=== PATIENT | female | born 1985 | race Caucasian/White ===

== ENCOUNTER → 2016-09-29 | Outpatient (CLI) | payer OTHER ==
[~2016-09-29] MED LIST: OPTIRAY 320 IV PRN
--- NOTE | 2016-09-29 13:57 | DIAGNOSTIC IMAGING REPORT ---
CT ORBITS/SELLA/TEMP WITH CT DOSE: 101.18 mGy.cm CLINICAL HISTORY: Right orbital pain TECHNIQUE: The patient was scanned in a dynamic helical fashion during intravenous administration of 94 cc of Optiray 320. COMPARISON STUDY: MRI the brain dated 06/24/2016 FINDINGS: The visualized portions intracranial contents appear normal. There is no evidence of acute sinusitis. There is mild mucosal thickening involving the base of the left maxillary sinus. There is localized fusiform thickening of the right medial rectus muscle. The remainder of the extraocular muscles appear unremarkable. There is no evidence of pathologic adenopathy. This finding was not present on the prior MRI study performed 06/24/2016. IMPRESSION: 1. Fusiform thickening of the right medial rectus muscle. Diagnostic considerations include orbital myositis, thyroid related eye disease, other orbital inflammatory processes (idiopathic inflammation, vasculitis, sarcoid), and significantly less likely neoplasm (given the normal appearance on the MRI study dated 06/24/2016). Electronically signed by: Daniel Mccabe M.D. 09/29/2016 1:55 PM Dictated Date/Time: 09/29/2016 1:41 PM
== END | disposition home or self-care (01) ==
LOC: C.CTS 13:10
PROVIDERS: ATTEND Internal Medicine
DX: L03.213 Periorbital cellulitis (principal); H57.9 Unspecified disorder of eye and adnexa

== ENCOUNTER → 2016-10-15 | Outpatient (CLI) | payer OTHER ==
[~2016-10-15] MED LIST changes: +GADAVIST IV PRN; -OPTIRAY 320 IV PRN
--- NOTE | 2016-10-15 11:20 | DIAGNOSTIC IMAGING REPORT ---
MRI OF THE BRAIN COMBO CLINICAL HISTORY: Pseudotumor cerebri. Right eye pain. COMPARISON STUDY: MRI of the brain pituitary protocol dated 06/24/2016. CT scan of the orbits dated 09/29/2016. TECHNIQUE: MRI of the brain was performed utilizing various T1 and T2-weighted sequences in the axial, sagittal, and coronal planes. Contrast-enhanced sequences were acquired following the administration of 10 cc of Gadavist. FINDINGS: Brain parenchyma: The brain parenchyma is normal in appearance. There is no hemorrhage or mass effect. There is no restricted diffusion to suggest acute ischemia. No enhancing mass lesion is identified on the postcontrast images. Lousie-white matter differentiation is preserved. No extra-axial fluid collection is seen. The cerebellar tonsils are normal in configuration. Ventricles, sulci, and cisterns: Normal in configuration. Pituitary and sella: Unremarkable. Intracranial vasculature: Normal flow voids are maintained at the skull base. Orbits: The bony orbits are grossly intact. Asymmetric thickening is again seen within the right medial rectus muscle. Orbital contents are otherwise normal in appearance. There is no prominence of the subarachnoid space around the optic nerves. Sinuses and mastoids: There is a retention cyst in the left maxillary antrum. The paranasal sinuses and mastoid air cells are otherwise clear. Calvarium: Unremarkable. Cervical cord: Partially visualized cervical spinal cord is normal in morphology and signal intensity. IMPRESSION: 1. No acute intracranial abnormality. 2. Again seen is asymmetric thickening of the right medial rectus muscle. This is similar to the 09/29/[address] scan and was better assessed on that examination. Electronically signed by: Isra Jo M.D. 10/15/2016 11:19 AM Dictated Date/Time: 10/15/2016 11:10 AM
== END | disposition home or self-care (01) ==
LOC: C.MRIBC 10:00
PROVIDERS: ATTEND Internal Medicine
DX: L03.213 Periorbital cellulitis (principal); G93.2 Benign intracranial hypertension

== ENCOUNTER → 2017-09-01 | Outpatient (CLI) | payer OTHER ==
--- NOTE | 2017-09-01 23:24 | DIAGNOSTIC IMAGING REPORT ---
BRAIN COMBO FOR PITUITARY, ORBIT COMBO HISTORY: 31 years-old Female D35.2 [id number] Headache attention to right orbit history of thickening involving the right medial rectus musculature COMPARISON: Brain MRI 10/15/2016 TECHNIQUE: Multiplanar multisequence MRI of the brain was obtained both with and without 11 mL Gadavist utilizing pituitary mass protocol. MRI of the orbits was also obtained. FINDINGS: BRAIN MRI: No restricted diffusion. The midline structures including the corpus callosum, optic chiasm, cerebellar tonsils and pineal gland are unremarkable on the sagittal T1 series. Major flow voids at the level of the skull base are patent. Mastoid air cells are clear. Mild mucosal thickening of the inferior left maxillary antrum dependently and ethmoid air cells. Right-sided phil bullosa. The scalp, calvarium and soft tissues are unremarkable. No acute intracranial hemorrhage, midline shift, abnormal extra-axial collections, hydrocephalus or intracranial mass identified. There is a punctate focus of mildly increased T2/FLAIR signal within the subcortical white matter of the right frontal lobe, image 12 of series 7 which is likely of no clinical significance. The dynamic postcontrast images through the pituitary gland demonstrate homogeneous enhancement without focal mass identified. The pituitary infundibulum appears normal. ORBITS MRI: Courses of the 7th and 8th cranial nerves appear normal. Cisternal portions of the trigeminal nerves are within normal limits. No cerebellar pontine angle mass identified. Imaged brain parenchyma appears normal. Mild mucosal thickening of the ethmoid air cells. Small right phil bullosa. Bilateral globes are within normal limits. Bilateral optic nerves are within normal limits. The extraocular musculature appears within normal limits. The right medial rectus muscle appears symmetric compared to the contralateral side. No significant extraocular muscular thickening, abnormal enhancement or surrounding inflammatory changes. No inflammatory changes of the intraconal or extraconal structures. Lacrimal glands are within normal limits. IMPRESSION: 1. Resolution of the previously described asymmetric thickening and inflammatory change of the right medial rectus muscle. No significant extraocular muscular thickening, abnormal enhancement or inflammatory changes identified on today's exam. 2. No acute intracranial abnormality or abnormal intracranial enhancement. 3. Normal appearance of the pituitary gland without focal mass identified. 4. Small right phil bullosa with minimal paranasal sinus disease. The above report was generated using voice recognition software. It may contain grammatical, syntax or spelling errors. Electronically signed by: Kody Noriega M.D. 09/01/2017 11:22 PM Dictated Date/Time: 09/01/2017 10:39 PM
== END | disposition home or self-care (01) ==
LOC: C.MRI 20:11
PROVIDERS: ATTEND Physician Assistant
DX: R51 Headache (principal); D35.2 Benign neoplasm of pituitary gland

== ENCOUNTER 2020-03-13 10:11 | Inpatient (IN) ==
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
[2020-03-13 11:36] LABS: Basophils # (auto) 0.04 K/uL (0-0.2); Basophils % (auto) 0.4 %; Eosinophils # (auto) 0.04 K/uL (0-0.5); Eosinophils % (auto) 0.4 %; Hematocrit (blood only) 40.5 % (37-47); Hemoglobin 13.8 g/dL (12.0-16.0); Immature Granulocytes # (auto) 0.03 K/uL (0.00-0.02); Immature Granulocytes % (auto) 0.3 %; Lymphocytes # (auto) 1.57 K/uL (1.2-3.4); Lymphocytes % (auto) 16.4 %; Mean Corpuscular Hemoglobin 29.9 pg (25-34); Mean Corpuscular Hgb Conc 34.1 g/dL (32-36); Mean Corpuscular Volume 87.7 fL (80-100); Mean Platelet Volume 9.9 fL (7.4-10.4); Monocytes % (auto) 7.3 %; Neutrophils # (auto) 7.17 K/uL (1.4-6.5); Neutrophils % (auto) 75.2 %; Platelet Count 281 K/uL (130-400); RDW Coefficient of Variation 12.6 % (11.5-14.5); RDW Standard Deviation 40.1 fL (36.4-46.3); Red Blood Count 4.62 M/uL (4.2-5.4); White Blood Count 9.55 K/uL (4.8-10.8)
[2020-03-13 11:52] LABS: Pregnancy Test, Urine Negative (Negative)
[2020-03-13 11:53] LABS: Appearance Urine Clear (Clear); Bilirubin Urine Negative (Negative); Blood Urine Negative (Negative); Color Urine Yellow; Glucose Urine UA Negative (Negative); Ketones Urine Negative (Negative); Leukocyte Esterase Urine Negative (Negative); Nitrite Urine Negative (Negative); Protein Urine Negative (Negative); Specific Gravity Urine 1.005 (1.000-1.030); Urobilinogen Urine Negative (Negative); pH Urine 6.5 (4.5-7.5)
[2020-03-13 12:27] LABS: Alanine Aminotransferase 58 U/L (12-78); Albumin Level 4.2 gm/dl (3.4-5.0); Aspartate Aminotransferase 22 U/L (15-37); BUN Creatinine Ratio 8.8 (10-20); Blood Urea Nitrogen 7 mg/dl (7-18); Calcium 9.3 mg/dl (8.5-10.1); Carbon Dioxide 24 mmol/L (21-32); Chloride 104 mmol/L (98-107); Est GFR (African American) 113.1; Est GFR (Non-African American) 97.6; Glucose 108 mg/dl (70-99); Potassium 3.9 mmol/L (3.5-5.1); Sodium 137 mmol/L (136-145)
[2020-03-13 12:32] LABS: Amphetamines+Metham, Urine Neg (Neg); Barbiturates, Urine Neg (Neg); Benzodiazepine, Urine Pos (Neg); Cocaine, Urine Neg (Neg); MDMA (Ecstacy), Urine Neg (Neg); Methadone, Urine Neg (Neg); Opiate, Urine Neg (Neg); Phencyclidine, Urine Neg (Neg)
[2020-03-13 12:33] LABS: Acetaminophen < 2 ug/ml (10-30)
[2020-03-13 12:34] LABS: Salicylate < 1.7 mg/dl (2.8-20)
[2020-03-13 12:38] LABS: Albumin Globulin Ratio 1.1 (0.9-2); Alkaline Phosphatase 124 U/L (45-117); Bilirubin,Total 0.8 mg/dl (0.2-1); Globulin 3.7 gm/dl (2.5-4.0); Total Protein 7.9 gm/dl (6.4-8.2)
[2020-03-13] MEDS ORDERED: ALPRAZolam 0.5 MG TABLET PO STA (14:07)
[2020-03-13] MEDS ORDERED: MAGNESIUM HYDROXIDE SUSP 30 ML UDC PO PRN (14:21)
[2020-03-13] MEDS ORDERED: SODIUM CHLORIDE 0.65% NA SOLN 45 ML (OCEAN) PRN (14:21)
[2020-03-13] MEDS ORDERED: ALUMINUM/MAGNESIUM SUSP 30 ML UDC PO PRN (14:21)
[2020-03-13] MEDS ORDERED: BISMUTH SUBSALICYLATE PER ML OMNICELL CHARGE PO PRN (14:21)
[2020-03-13] MEDS ORDERED: ACETAMINOPHEN 500 MG TAB PO PRN (14:57)
[2020-03-13] MEDS ORDERED: IBUPROFEN 200 MG TAB PO PRN (14:58)
[2020-03-13] MEDS ORDERED: ALPRAZolam 0.5 MG TABLET PO PRN ×2 (15:56→15:58)
[2020-03-14] MEDS ORDERED: SERTRALINE HCL 100 MG TABLET PO SCH (09:00)
--- NOTE | 2020-03-14 09:55 | History & Physical ---
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 Stop: 04/12/20 14:20
[2020-03-14] MEDS ORDERED: SERTRALINE HCL 50 MG TABLET PO STA (12:56)
[2020-03-15 08:09] LABS: 7-Aminoclonaz, Confirm NEGATIVE ng/mL (<25); Hydro-Alp Ur, GC/MS 113 ng/mL (<25); Hydroxyethylflurazepam, Conf NEGATIVE ng/mL (<50); Hydroxymidazolam Ur, GC/MS NEGATIVE ng/mL (<50); Hydroxytriazolam NEGATIVE ng/mL (<50); Lorazepam, Ur GC/MS NEGATIVE ng/mL (<50); Nordiazepam, Confirm NEGATIVE ng/mL (<50); Oxazepam Ur, GC/MS NEGATIVE ng/mL (<50); Temazepam, Confirm NEGATIVE ng/mL (<50)
[2020-03-15] MEDS: SERTRALINE HCL 50 MG TABLET PO SCH (09:15)
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
[2020-03-16] MEDS: SERTRALINE HCL 50 MG TABLET PO SCH (09:22)
[2020-03-16] MEDS ORDERED: ARIPIprazole 1 MG/ML ORAL SOLN 150 ML BTL PO ONE (12:45)
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
[2020-03-17 07:40] LABS: Glucose Fasting 90 mg/dl (70-99)
[2020-03-17 07:45] LABS: Chol HDL Ratio 5; Cholesterol 194 mg/dl (0-200); HDL Cholesterol 42 mg/dl; LDL Cholesterol Calculated 128 mg/dl; Triglycerides 120 mg/dl (0-150); VLDL Cholesterol 24 mg/dl
[2020-03-17] MEDS: SERTRALINE HCL 50 MG TABLET PO SCH (08:38)
[2020-03-17] MEDS ORDERED: ARIPIprazole 1 MG/ML ORAL SOLN 150 ML BTL PO SCH (09:00)
[2020-03-17] MEDS ORDERED: hydrOXYzine HCl 10 MG TAB PO PRN (12:53)
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
[2020-03-18] MEDS: SERTRALINE HCL 50 MG TABLET PO SCH (09:52)
[2020-03-18] MEDS: ARIPiprazole 5 MG TAB PO SCH (10:43)
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
[2020-03-19] MEDS: ARIPiprazole 5 MG TAB PO SCH (08:23)
[2020-03-19] MEDS: SERTRALINE HCL 50 MG TABLET PO SCH (08:23)
--- NOTE | 2020-03-19 09:32 | Discharge Summary ---
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 she is continuing to indicate interest. She has, "I would really like to get better with medication and not have to think about things like ECT." 03/17 -Discontinue Xanax -Substitute reduced dose of hydroxyzine at 10 mg as needed 03/18 - Reporting improvement in anxiety - Continue hydroxyzine 10mg as needed for anxiety/insomnia - discussed that dosing could be adjusted as needed - Pt does feel the addition of aripiprazole may be providing some off-label benefit for her anxiety (4) PTSD (post-traumatic stress disorder): 03/14 - Titrating sertraline as above - Reschedule intake appointment with [facility] for therapy - Could consider initiation of prazosin to more specifically target symptoms of PTSD if ongoing difficulty with sleep or sertraline response to sertraline is not as robust as anticipated 03/15 -Patient indicates that she would prefer to avoid adding yet another medication and would like to first evaluate her response to sertraline and, possibly, to individual outpatient psychotherapy. (5) Self-injurious behavior: 03/14 - Continue to encourage development of healthy coping strategies and alternatives to self-harm behavior - Pt able to contract for safety on the unit at this time, feels as though she could inform staff of thoughts and urgest before acting on them - Safe room available as needed for intense urges to self harm 03/15 -The patient has followed through on her promise let staff know if she is having impulses to act on her self-injurious thoughts. She is not engaged in self-injurious behavior on the unit, but has been able to tell staff when she may need extra attention or the use of a quiet room. 03/18 - Denies continued thoughts/urges to self-harm during this admission Mental Health & Subst Abuse Tx Psychiatrist Name of Psychiatrist: [facility] - Dr. Lemos Psychiatrist's Date of Appointment with Psychiatrist: 03/20/20 Time of Appointment with Psychiatrist: 2:00 p.m. Psychiatric Appointment Comment: [facility] Psychiatrist Release of Information: Obtained, Reviewed and Signed Therapist Name of Therapist: [facility] - Leatha Foote Therapist's Date of Therapist Appointment: 03/20/20 Time of Therapist Appointment: 10:00 a.m. Therapy Appointment Comment: Telehealth - Zoom Therapist Release of Information: Obtained, Reviewed and Signed Post Discharge Appointments Primary Care Physician Name Of Family Doctor: [facility] Time of Appointment with PCP: Follow up as needed Provider Appointment Comment: [facility] Smoking Cessation Counseling Tobacco Cessation Medication Prescribed at Discharge: Not Applicable/Non-Smoker Contact Information Discharge Discharge Address: [address] [place] [address] Discharge Plan Discharge Items Patient Disposition: Home - Self-Care Reason For Visit: MDD,SI Discharge Diagnosis: - Major depressive disorder - Generalized anxiety disorder - Self-injurious behavior Condition on Discharge: Good Activity: Resume your previous activity Non-emergency contact: Primary Care Provider, Psychiatrist and Therapist Call non-emergency contact if: you have any medication questions and your symptoms worsen Follow-up/Referrals: [place] [Primary Care Provider] - Diet: Regular Addtl Attending Provider Instructions: SPECIAL CARE INSTRUCTIONS: 1. Follow through with your scheduled aftercare appointments. If unable to keep an appointment, please call to reschedule. 2. Take your medication only as prescribed. Medication should not be changed or stopped without the approval of your doctor. In the event of worsening symptoms or concerns about side effects, contact your doctor immediately. 3. Utilize new healthy coping skills, anger management skills, and stress management skills learned during your hospitalization. Journal feelings and process them with a support person. Identify stressors or situations that may result in relapse, deterioration or inappropriate behaviors and develop a plan to deal with those issues. 4. If your coping skills are ineffective and you are in crisis, contact your outpatient providers for direction. If unable to reach your providers, please call the CAN HELP LINE AT or go to the closest Emergency Room. 5. Avoid alcohol and un-prescribed drugs. 6. You have been provided with the Mental Health Advance Directives Pamphlet for your review. AFTERCARE APPOINTMENTS: * Please call your insurance company prior to your scheduled appointment to confirm your aftercare providers are covered. Take your insurance information to your appointments. WHO TO CALL AND WHEN: Medical Emergencies: For questions or emergencies related to your hospital stay, please contact the Inpatient Behavioral Health Unit at [phone]. A office clinician is on-call 12/04 for the Behavioral Health Unit for emergencies At any time you feel your situation is an emergency, you may also call 911 immediately. Your Discharge Instructions noted above were prepared by provider Selena Oliver PA-C. Pending Studies at Discharge: No Stand-Alone Forms: My [facility], Smoking Cessation Medications and DC Order Prescriptions: New hydroxyzine HCl 10 mg Tablet 10 mg PO Q4H PRN (Reason: anxiety/insomnia) 30 Days Qty: 30 RF: 0 aripiprazole [Abilify] 5 mg Tablet 2.5 mg PO QAM Qty: 30 RF: 0 sertraline 100 mg tablet 150 mg PO DAILY 30 Days Qty: 45 RF: 0 Continued ibuprofen 200 mg capsule 400 mg PO UD PRN (Reason: pain) RF: 0 acetaminophen 500 mg capsule 500 mg PO UD PRN (Reason: pain) RF: 0 Discontinued sertraline 100 mg Tablet 100 mg PO DAILY RF: 0 alprazolam 0.5 mg Tablet 0.5 mg PO TID PRN (Reason: Anxiety) RF: 0 alprazolam 0.5 mg Tablet Extended Release 24 Hr 0.5 mg PO DAILY RF: 0 Discharge Orders: Discharge Order (Routine); Ordered 03/19/20 Ordered By: Selena Oliver Admission Data Admit Date/Time: 03/13/20 14:50 Attending Provider: Tru Ibarra I. Admit Provider: Tru Ibarra I. Primary Care Provider: [facility] Other Interventions: Discharge Summary Assessment (RN) Last Done: 03/19/20 09:50 PSY Interdisciplinary Discharge Planning Last Done: 03/19/20 09:48 Coding Level of Care Code 89068 D/C day mgmt > 30 min Diagnoses Suicidal ideation R45.851 Depression F33.2 Active/Remission status: currently active Depression Type: major depressive disorder Major depression episode severity: severe Major depression recurrence: recurrent Psychotic features: without psychotic features Generalized anxiety disorder F41.1 PTSD (post-traumatic stress disorder) F43.10 Self-injurious behavior Z72.89
== END 2020-03-19 10:50 | disposition home or self-care (01) | DRG 885 ==
LOC: ED 10:11 → 3S 14:44